=== PATIENT | male | born 1970 | race Caucasian/White ===

== ENCOUNTER 2017-02-06 14:00 | Inpatient (IN) | payer MEDICAID ==
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
--- NOTE | ~2017-02-06 | DS ---
Unit #: [id number] #: [id number] Patient: RYAN CAM [id number] [facility] [address] [place] [address] [id number] MR#: [id number] NAME: RYAN CAM ROOM: P207 Age: 47 Sex: M Admission Date: 02/06/2017 : 1970 Discharge Date: Attending Physician: Luigi Kenny M.D. Primary Care Physician: Primary Care Physician No DISCHARGE SUMMARY REASON FOR ADMISSION The patient is a 47-year-old white male, admitted to the [address] [place] [address] for alcohol detox. HOSPITAL COURSE The patient was admitted to the [address] [place] [address] and placed on routine detoxification protocol for alcohol. His stay in the hospital was a brief and uneventful one. On 02/07/2017, the patient reported this physician that he needed to return to [place] to continue work and to attend a medical appointment related to a recent fractured C2 vertebrae. The risks of untreated alcohol withdrawal were discussed with the patient, but his discharge was made on against medical advice basis as he was exhibiting little in the way of signs or symptoms of withdrawal at the time of discharge. FINAL DIAGNOSES Alcohol use disorder, status post C2 fracture. DISPOSITION ON DISCHARGE No psychotropic or other medications were ordered at the time of discharge. FOLLOWUP Followup will take place through the auspices of community mental health resources in the [place], [place] area. PROGNOSIS The patient's prognosis is considered fair. Dictated by... Luigi Kenny M.D. CB/gracyl TD: 02/07/2017 14:38 JOB #: [id number] Unit #: [id number] #: [id number] Patient: RYAN CAM DISCHARGE SUMMARY Page 1 of 1 X Luigi Kenny MD X DISCHARGE SUMMARY
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
[2017-02-07 09:36] LABS: BASOPHIL% 0.8 % (0-2.5); EOSINOPHIL# 0.2 X10e3 (0-0.7); EOSINOPHIL% 4.2 % (0.0-7.0); HEMATOCRIT 44.6 % (38.0-50.0); HEMOGLOBIN 14.2 gm/dL (13.0-16.0); LYMPHOCYTE# 1.2 X10e3 (1.0-3.5); LYMPHOCYTE% 24.6 % (17.0-45.0); MEAN CELL VOLUME 100.4 FL (83-96); MEAN CORPUSCULAR HGB CONC 31.9 g/dL (30-36); MONOCYTE# 0.6 X10e3 (0-1.0); MONOCYTE% 11.9 % (3.0-12.0); NEUTROPHIL# 2.9 X10e3 (1.5-7.1); NEUTROPHIL% 58.5 % (40-75); PLATELET COUNT 126 X10e3 (140-420); RED BLOOD COUNT 4.44 X10e (3.90-5.60); RED CELL DISTRIBUTION WIDTH 14.2 % (11.0-15.5)
[2017-02-07 09:48] LABS: DIFF IND NO
[2017-02-07 09:53] LABS: ALBUMIN SERUM 3.6 g/dL (3.5-5.0); BILIRUBIN,TOTAL 1.7 mg/dL (0.2-2.0); CALCIUM SERUM 8.4 mg/dL (8.4-10.2); CREATININE SERUM 0.9 mg/dL (0.6-1.4); GLOM FILT RATE Estimated 101.4 mL/min (>60); POTASSIUM 3.4 mmol/L (3.5-5.1); PROTEIN TOTAL SERUM 5.8 g/dL (6.0-8.3)
[2017-02-07 10:13] LABS: URINE APPEARANCE TURBID; URINE BILIRUBIN NEG (NEG); URINE BLOOD NEG (NEG); URINE COLOR YELLOW; URINE GLUCOSE NEG (NEG); URINE KETONE TRACE (NEG); URINE LEUKOCYTE ESTERASE NEG (NEG); URINE NITRATE NEG (NEG); URINE PROTEIN NEG (NEG); URINE SPECIFIC GRAVITY 1.018 (1.003-1.035)
[2017-02-07 11:30] LABS: AMPHETAMINE NEG (NEG); BARBITURATES NEG (NEG); BENZODIAZEPINES POS (NEG); COCAINE NEG (NEG); MARIJUANA NEG (NEG); OPIATES NEG (NEG); TRICYCLIC ANTIDEPRESSANTS NEG (NEG); U METHADONE NEG (NEG)
== END 2017-02-08 11:00 | disposition home or self-care (01) | DRG 897 ==
LOC: P2S 14:00
PROVIDERS: Specialist
PROC: HZ2ZZZZ Detoxification Services for Substance Abuse Treatment (ICD-10-PCS; principal; 2017-02-06)
DX: F10.20 Alcohol dependence, uncomplicated (principal); Z88.5 Allergy status to narcotic agent; S12.100D Unspecified displaced fracture of second cervical vertebra, subsequent encounter for fracture with routine healing; V89.2XXD Person injured in unspecified motor-vehicle accident, traffic, subsequent encounter
CPT/HCPCS: 80053; 80307; 81003; 85025; 86592